=== PATIENT | female | born 1960 | race Caucasian/White ===

== ENCOUNTER → 2017-11-12 | Outpatient (CLI) | payer OTHER ==
--- NOTE | 2017-11-12 16:33 | US ---
EXAMINATION TYPE: US renal artery duplex complet DATE OF EXAM: 11/12/2017 COMPARISON: NONE CLINICAL HISTORY: I70.1 atherosclerosis of renal artery. History of FMD. Angioplasty 12-15 years ago, no stent placement. HTN for 2-3 weeks. MEASUREMENTS: RENAL SIZE: Rt Kidney: 9.9 x 4.8 x 4.5cm Lt Kidney: 9.9 x 5.2 x 4.0cm RESISTANCE INDEX Right: 0.65 Left: 0.65 RA/AO RATIO (< 3.5 ) Right: 2.4 Left: 2.1 RA VELOCITY ( < 180 cm/s) Right: 214.9cm/s Left: 185.2cm/s Extreme technical limitations due to large amount of overlying bowel content (patient not adequate ly prepped, not NPO). Visualized portions of aorta and renals appear unremarkable. Limited evaluation of bilateral renal arteries due to overlying bowel content. Possible elevated velocities right prox and mid renal artery. Left renal artery appears upper limits of normal IMPRESSION: 1. Renal arterial ultrasound is visualized appears within normal limits. Velocities however are eleva adrianna. Doppler waveforms are normal. Focal stenosis is not excluded.
== END | disposition home or self-care (01) ==
LOC: RADUSWWP 13:25
PROVIDERS: ATTEND Family Medicine
DX: I70.1 Atherosclerosis of renal artery (principal)
CPT/HCPCS: 93975

== ENCOUNTER → 2021-03-29 | Outpatient (CLI) | payer OTHER ==
--- NOTE | 2021-03-30 08:55 | ECHOS ---
STRESS ECHOCARDIOGRAM INDICATIONS: Difficulty in breathing BASELINE HEART RATE: 79 BASELINE BLOOD PRESSURE: 153/79 MAXIMUM HEART RATE: 152 MAXIMUM BLOOD PRESSURE: 201/97 85% MPHR: 134 100% MPHR: 158 METS: 8.3 MAXIMUM STAGE REACHED: 3 TOTAL EXERCISE TIME: 7:00 STRESS DATA: Heart rate is heart rate is 79, pressure is 153/79 mmHg. Baseline EKG showed sinus mechanism. The patient exercised on the treadmill according to [facility] protocol for a total of 7 minutes and achieved 8.3 METS. Max heart rate was 152 which is about 96% of maximum predicted heart rate with maximum blood pressure of 153/79 mmHg. Clinically, the patient did not have any symptoms besides difficulty in breathing, but no chest pain or chest discomfort. The EKG did not show any significant ST or T-wave abnormalities. Echo: On echocardiogram images from parasternal long axis view, parasternal short axis view, apical 4-chamber and apical 2 chambers were obtained as the baseline images at the peak of the heart rate as well as on recovery. The echocardiogram images showed good augmentation in the left ventricular systolic function without any evidence of wall motion abnormalities concerning for ischemia. CONCLUSION: 1. Good exercise tolerance. 2. Good augmentation in the blood pressure and heart rate in response to exercise. 3. Normal EKG in response to exercise. 4. Normal echocardiogram in response to exercise. MMODL / IJN: [id number] /
== END | disposition home or self-care (01) ==
LOC: RADNMMAIN 08:54
PROVIDERS: ATTEND Family Medicine
DX: R07.9 Chest pain, unspecified (principal); R06.09 Other forms of dyspnea
CPT/HCPCS: 93351